=== PATIENT | female | born 2000 | race Caucasian/White ===

== ENCOUNTER → 2023-08-22 | Outpatient (CLI) | payer MEDICAID | END | disposition home or self-care (01) | LOC: RAD 09:39 | PROVIDERS: ATTEND Physician Assistant | DX: S67.198A Crushing injury of other finger, initial encounter (principal); X58.XXXA Exposure to other specified factors, initial encounter; Y93.89 Activity, other specified; Y92.89 Other specified places as the place of occurrence of the external cause; Y99.8 Other external cause status | CPT/HCPCS: 73140 ==